=== PATIENT | male | born 1945 | race Caucasian/White ===

== ENCOUNTER → 2022-04-12 | Outpatient (CLI) | payer MEDICARE ==
--- NOTE | 2022-04-12 13:51 | RAD ---
CT scan abdomen and pelvis without contrast 04/12/2022 CLINICAL HISTORY: Prostate cancer. TECHNIQUE: Unenhanced, contiguous, 0.625 mm axial sections were obtained through the abdomen and pelv is. 3 mm reconstructed sagittal, axial and coronal images were obtained. One or more of the following individualized dose reduction techniques were utilized for this study: 1. Automated exposure control. 2. Adjustment of the mA and/or kV according to patient size. 3. Use of iterative reconstruction technique. FINDINGS: Images through the lung bases demonstrate mild cardiomegaly. Calcified right hilar lymph no long are seen. Scattered coronary artery calcifications are seen. Bilateral lower lobe atelectasis and /or infiltrate, left greater than right is noted. Elevation of the left hemidiaphragm is noted. The liver, spleen, pancreas, and right adrenal gland are within normal limits. A 1.9 cm oval-shaped l ow-attenuation lesion is seen involving the left adrenal gland consistent with an adrenal adenoma. At rophy of both kidneys is seen. The left kidney is malrotated. Rounded low-attenuation lesions are see n involving both kidneys which measure 5 mm to 1.8 cm. These likely represent cysts. No further imagi ng evaluation is recommended. The gallbladder is contracted. Atherosclerotic calcification of the abdominal aorta is seen. The abdo camryn aorta tapers normally. Air and stool are seen throughout the colon. Scattered diverticula are s een involving the colon. No inflammatory changes are seen adjacent fat. No retroperitoneal lymphadeno fartun is seen. Images through the pelvis demonstrate a Weathers catheter within the urinary bladder. The urinary bladde r is contracted with a thickened wall. The prostate gland is mildly enlarged. Calcifications are seen within the prostate gland. No free fluid is seen. A small fat-containing left inguinal hernia is see n. The hernia sac measures 4.4 cm in size. Triangular soft tissue attenuation is seen within the the superior right inguinal region which measures 3.2 cm in size. This likely represents an enlarged lymp h node. No pelvic lymphadenopathy is seen. Minimal S-shaped curvature of the thoracolumbar spine is seen. Degenerative changes are seen involvin g the lower thoracic and throughout the lumbar spine along with both hips. IMPRESSION: 1. . There is no CT evidence of metastatic disease involving the abdomen. 2. 3.2 cm right inguinal lymph node. No pelvic lymphadenopathy is seen. Electronically signed by: Billy Zimmerman MD (04/12/2022 1:49 PM) [id number]
--- NOTE | 2022-04-12 16:59 | RAD ---
Bone scan 04/12/2022 CLINICAL HISTORY: Prostate cancer. TECHNIQUE: 3 hours after the intravenous administration of 25.2 mCi of Technetium 99m MDP, whole body imaging of the axial and appendicular skeleton was performed using the gamma camera. FINDINGS: Comparison is made to a CT scan of the abdomen and pelvis performed earlier the same day. Areas of increased activity are seen involving both shoulders, both hips, both knees, right greater t pack left and both feet and ankles consistent with areas of degenerative change. No area of abnormally increased activity is seen to suggest evidence of skeletal metastatic disease. IMPRESSION: There is no scintigraphic evidence of skeletal metastatic disease. Electronically signed by: Billy Zimmerman MD (04/12/2022 4:57 PM) [id number]
== END ==
LOC: NM 09:51
PROVIDERS: ATTEND Specialist
DX: C61 Malignant neoplasm of prostate (principal); R59.9 Enlarged lymph nodes, unspecified; J98.6 Disorders of diaphragm; K40.90 Unilateral inguinal hernia, without obstruction or gangrene, not specified as recurrent
CPT/HCPCS: 74176; 78306; A9503